=== PATIENT | female | born 1950 | race Caucasian/White ===

== ENCOUNTER → 2016-10-06 | Outpatient (CLI) | payer OTHER ==
--- NOTE | 2016-10-06 17:06 | KCIC ---
Bilateral digital screening mammograms with CAD: HISTORY Routine screening. COMPARISON Comparison is made to previous examinations dated 09/11/2015 and 09/06/2014. FINDINGS Breast density category A. The skin and nipples show no abnormalities. No abnormal lymph nodes are seen in the axilla. The breast parenchyma is predominately fatty. There are no dominant masses, suspicious calcifications or architectural distortions. Benign appearing calcifications are present. IMPRESSION No evidence of malignancy. Recommend routine annual mammographic screening. This study was interpreted with the benefit of Computerized Aided Detection (CAD). Mammography is not 100% sensitive in detecting breast cancer. Therefore, a self breast exam and a clinical breast exam are very important. A negative mammogram does not negate a clinically suspicious finding and should not result in a delay in biopsying a clinically suspicious abnormality. BI-RADS category 2. Benign. This patient's information has been entered into a reminder system for the patient to be notified with the results of this examination and a target date for her next mammograms. Electronically signed by: Pascale Quiros MD (Oct 06, 2016 17:05:07)
== END | disposition home or self-care (01) ==
LOC: KCIC MAMMO 14:52
PROVIDERS: ATTEND Family Medicine
DX: Z12.31 Encounter for screening mammogram for malignant neoplasm of breast (principal)
CPT/HCPCS: G0202; 77067

== ENCOUNTER → 2016-12-26 | Outpatient (CLI) | payer OTHER ==
--- NOTE | 2016-12-26 15:56 | KCIC ---
PROCEDURE MRI lumbar spine without contrast. HISTORY Low back pain. Bilateral radiculopathy. Symptoms are right greater than left and chronic. Symptoms have worsened in the last 5 years. TECHNIQUE Sagittal T1, sagittal T2, sagittal STIR, axial T1, and axial T2 sequences are provided. COMPARISON None. FINDINGS There is 4 millimeters of anterolisthesis at L3-L4. There is fatty replacement of the endplates at L4-L5 which appears degenerative. There is no marrow edema or worrisome marrow lesion. There is diffuse disc desiccation. There are probably vacuum discs from L2-L3 through L4-L5. There is narrowing of the interspace at L3-L4 and L4-L5. The conus medullaris is normal in signal intensity and in position. Subcutaneous edema is noted. The numbering system assumes 5 lumbar type vertebral bodies. Findings by individual level are as follows: T11-T12: Disc bulge and facet hypertrophy are noted, no canal or foraminal compromise is present. T12-L1: Disc osteophyte complex and minimal facet hypertrophy are noted. Midline AP diameter of the thecal sac is 13 millimeters, not significantly narrowed. There is minimal foraminal narrowing. L1-L2: Mild disc bulge and minimal facet hypertrophy are noted with minimal foraminal narrowing. Midline AP diameter of the thecal sac is 15 millimeters. L2-L3: Disc bulge and klst-co-abpulsbw facet hypertrophy are noted. There is minimal canal stenosis, midline AP diameter of the thecal sac narrowed to 10-11 millimeters. Foraminal narrowing is pulb-em-vdascqob. L3-L4: Disc osteophyte complex and moderate to severe facet and ligamentum flavum hypertrophy are noted. There is moderate to severe canal stenosis, midline AP diameter of the thecal sac 6 millimeters. There is lateral recess narrowing bilaterally. There is mild left and rbcc-tr-zkldyerc right foraminal narrowing. L4-L5: Disc osteophyte complex and facet hypertrophy are noted. Midline AP diameter of the thecal sac is 12 millimeters. There is mild to moderate bilateral foraminal narrowing. L5-S1: There is facet hypertrophy without canal or foraminal compromise. A few small perineural cysts are noted in the sacrum. IMPRESSION Degenerative disc disease and facet and ligamentum flavum hypertrophy are greatest at L3-L4 where there is canal stenosis and right greater than left foraminal narrowing. Electronically signed by: Luigi Bhatti MD (Dec 26, 2016 15:54:44)
== END | disposition home or self-care (01) ==
LOC: KCIC MRI 14:19
PROVIDERS: ATTEND Family Medicine
DX: M51.36 Other intervertebral disc degeneration, lumbar region (principal); M48.06 Spinal stenosis, lumbar region
CPT/HCPCS: 72148

== ENCOUNTER → 2017-01-15 | Outpatient (CLI) | payer OTHER ==
--- NOTE | 2017-01-15 12:45 | KCIC ---
AP a low lumbar spine with flexion and extension views Indication: Reason For Study Reason: LOWER BACK PAIN RADIATING DOWN INTO RIGHT HIP, WORSENING X 5 YEARS / Spl. Instructions: COMPARISION LUMBAR XRAYS SENT 06/09/16 / History: Findings: There is no compression fracture. Disc height loss is noted at all levels. There is anterolisthesis of L3 on L4 which is exacerbated during flexion and partially reduces during extension. Facet arthropathy is noted at L3-4. Impression: - Multilevel degenerative disc disease throughout the lumbar spine greatest at L3-L4. There is abnormal motion noted at this level. Facet arthropathy is also noted at this level. Electronically signed by: Jesse Breen (January 15, 2017 12:44:09)
== END | disposition home or self-care (01) ==
LOC: KCIC 10:56
PROVIDERS: ATTEND Neurological Surgery
DX: M51.36 Other intervertebral disc degeneration, lumbar region (principal); M12.88 Other specific arthropathies, not elsewhere classified, other specified site
CPT/HCPCS: 72100

== ENCOUNTER 2017-02-18 08:48 | Inpatient (IN) | payer OTHER ==
--- NOTE | 2017-02-13 10:01 | PREOP HP ---
DATE OF SERVICE: 02/18/2017 HISTORY OF PRESENT ILLNESS: The patient is a pleasant 56-year-old woman, who is having difficulty with low back pain along with pain, which radiates to her right hip. On occasion, the pain can radiate further into the right posterior thigh. The problem has been present for several years. She rates her pain as a 9/10. Walking and standing increases her pain. Sitting gives her some relief. She has had chiropractic treatment as well as physical therapy. She has had epidural steroid injections more than 5 years ago for a short period of relief. She is taking Advil to help with her pain. PAST MEDICAL HISTORY: Arthritis, headaches/migraines, hypertension, and tonsillitis. PAST SURGICAL HISTORY: Tonsillitis in 1954, broken arm 1981, hysterectomy in 1983, carpal tunnel in 1987, ulcer in 1996, and torn rotator cuff in 2013. FAMILY HISTORY: Diabetes, heart problem/disease, hypertension, and heart attack in an early age. SOCIAL HISTORY: Retired. . Denies substance abuse. Denies tobacco use. She drinks alcohol one to two times per month. ALLERGIES: No known drug allergies. CURRENT MEDICATIONS: Venlafaxine, atorvastatin, glipizide, losartan, potassium with hydrochlorothiazide, meloxicam, omeprazole, trazodone, gabapentin, bupropion, prednisone, ____, and Advil. REVIEW OF SYSTEMS: A 12-point review of systems was obtained and is noncontributory, except that mentioned above. PHYSICAL EXAMINATION: NEUROSURGERY EXAMINATION: GENERAL APPEARANCE: Alert, pleasant, in no acute distress. HEENT: Normocephalic, atraumatic. SKIN: Warm and dry. MUSCULOSKELETAL: Lumbar paraspinal muscle bulk is normal, restricted range of motion of lumbar spine, bvvh-bt-qpbefqxy tenderness of lower lumbar spine with palpation, and normal range of motion of the upper and lower extremities bilaterally. EXTREMITIES: No clubbing, cyanosis, or edema. NEUROLOGIC: Alert and oriented x 3, normal recent and remote memory, strength is 5/5 in bilateral lower extremities, sensory was intact to light touch in bilateral lower extremities, reflexes were present and symmetric in the lower extremities bilaterally, negative straight leg raising bilaterally, and normal gait. IMAGING: Reviewed. I reviewed a recent lumbar MRI scan. On that study, at L3-4, there was a small, grade 1 spondylolisthesis with severe lumbar spinal stenosis at that level. Flexion and extension x-rays were also reviewed. On these, I noted ____ at L3-4, which has changed from a small, grade 1 spondylolisthesis to a full, grade 1 spondylolisthesis. ASSESSMENT: 1. Spinal stenosis, lumbar region. 2. Spondylolisthesis, lumbar region. PLAN: I recommend a wide laminectomy at L3-4, and in addition to this, an instrumented interbody fusion. I did discuss all of this with her. The postoperative course was reviewed. She would like to proceed. We will make the arrangements. JOSÉ MIGUEL NANCE MD DR: VALDO/tammie JOB#: [id number] / [id number]
[~2017-02-18] VITALS: Ht 167.6 cm; Wt 108.9 kg
[~2017-02-18 08:48] MED LIST: ATOR40TA59 PO; BACITRACIN 50,000 UNIT in IV NORMAL SALINE 1000ML BAG 1,000 ML IRR ONE; BUPR300T4 PO; CETI10TA16 PO; GLIP5TAB10 PO; HYDROmorphone 2 MG/ML VIAL IV PRN; IBUP200T58 PO; IV RINGERS,LACTATED 1000ML 1,000 ML IV SCH; LIDOCAINE 1% 1 ML SYRINGE. ID PRN; LOSA1TAB17 PO; LOSA1TAB18 PO; MELO15TA23 PO; METF500T4 PO; MORPHINE SULFATE 2 MG/ML DISP.SYRIN. IV PRN; MULT-460 PO; OMEP40CA5 PO; ONDANSETRON PF 4 MG/2 ML VIAL. IV PRN; PROCHLORPERAZINE 10 MG/2 ML VIAL. IV PRN; VENL75TA PO; fentaNYL PF VIAL 100 MCG/2 ML VIAL IV PRN
[2017-02-18] MEDS ORDERED: THROMBIN TOPICAL 20,000 UNIT SPRAY.SYRN KIT TP ONE (09:08)
[2017-02-18] MEDS ORDERED: GELATIN SPONGE SIZE 100. ONE (09:08)
[2017-02-18] MEDS ORDERED: BUPIVAC MPF-EPI 0.5%-1:200000 30 ML VIAL. ONE (09:08)
[2017-02-18] MEDS ORDERED: KETOROLAC 60 MG/2 ML INJ FOR OR. ONE (09:08)
[2017-02-18] MEDS ORDERED: ceFAZolin 2GM PREMIX 2 GM/50 ML BAG IV ONE (10:00)
[2017-02-18] MEDS ORDERED: ROCURONIUM 50 MG/5 ML VIAL. ONE (10:01)
[2017-02-18] MEDS ORDERED: PROPOFOL 20 ML IV ONE (10:01)
[2017-02-18] MEDS ORDERED: fentaNYL PF VIAL 100 MCG/2 ML VIAL ONE (10:01)
[2017-02-18] MEDS ORDERED: PROPOFOL 50 ML IV ONE (10:01)
[2017-02-18] MEDS ORDERED: 0.9 % SODIUM CHLORIDE 50 ML VIAL. IJ ONE (10:01)
[2017-02-18] MEDS ORDERED: REMIFENTANIL 2 MG VIAL. IV ONE (10:01)
[2017-02-18] MEDS ORDERED: LIDOCAINE 2% PF Vial for OR 5 ML VIAL. ONE (10:01)
--- NOTE | 2017-02-18 11:15 | RAD ---
CT of the lumbar spine without contrast, 02/18/2017: History: Lumbar spinal stenosis, brain lab study Noncontrast scans were obtained with multiplanar reconstructions produced. The data was transferred to the operating room to aid in the patient's stereotactically guided surgery. The following findings are delineated: 1. For purposes of this report the lowest visible disc space will be considered to be L5-S1. There is partial sacralization of the transverse processes at L5. Utilizing this numbering system there is only a small rudimentary rib on the right at T12. 2. There is degenerative disc disease throughout the lumbar spine with multiple vacuum discs and marginal spurs. There are moderate degenerative changes involving scattered facet joints bilaterally. 3. The facet joint arthropathy is worst at the L3-4 level. There is a minimal associated spondylolisthesis. There is moderate broad-based posterior disc bulging. There is moderate posterior ligamentous thickening at this level. The combination of findings is causing moderate central spinal stenosis in a triangle configuration, as well as mild inferior foraminal narrowing on the right. 4. At T12-L1 there is moderate broad-based posterior disc bulging and spurring the thecal sac measures 11 mm in AP diameter. The neural foramina are well maintained. 5. At L1-2 there is mild to moderate disc bulging posterolaterally on both sides. The central spinal canal and neural foramina are well maintained. 6. At L2-3 there is mild broad-based posterior disc bulging. There is mild posterior ligamentous thickening. The thecal sac measures 9-10 mm in AP diameter at the midline. The neural foramina are well maintained. 7. At L4-5 there is moderate posterior marginal spurring. There is moderate spurring arising from both facet joints. There is borderline narrowing of the central spinal canal. There is moderately severe bilateral foraminal stenosis due to the spurring. 8. The central spinal canal and neural foramina are well maintained at L5-S1. PQRS Compliance Statement: One or more of the following individualized dose reduction techniques were utilized for this examination: 1. Automated exposure control 2. Adjustment of the mA and/or kV according to patient size 3. Use of iterative reconstruction technique
[2017-02-18] MEDS ORDERED: SUGAMMADEX SODIUM 200 MG/2 ML VIAL. IVP ONE (13:14)
[2017-02-18 13:51] VITALS: BP 158/108
--- NOTE | 2017-02-18 14:10 | DISCH ---
DISCHARGE INSTRUCTIONS Condition on Discharge Condition on Discharge: Stable Activity After Discharge Activity Instructions for Disc: Activity as tolerated, Avoid exertion Diet after Discharge Additional Diet Restrictions: resume home diet Contacting the after DC Call your doctor for: Concerns you may have Follow-Up Follow up with: Dr. Nance's nurse next week JOSÉ MIGUEL NANCE MD Feb 18, 2017 14:10
[2017-02-18] MEDS ORDERED: AMOX1TAB61 PO (14:13)
[2017-02-18] MEDS ORDERED: SEVOFLURANE 16 TO 30 MINUTES. IH ONE (14:18)
[2017-02-18] MEDS ORDERED: SEVOFLURANE 31 TO 60 MINUTES. IH ONE (14:18)
--- NOTE | 2017-02-19 09:11 | ACF ---
Admission Forms Criteria MUSCULOSKELETAL DISEASE GRG Clinical Indications for Admission to Inpatient Care (Place 'X' for any and all applicable criteria): Hospital admission is needed for appropriate care of the patient because of 1 or more of the following: [ ]I. Fracture, dislocation, or other musculoskeletal injury requiring inpatient care(medical) as indicated by 1 or more of the following(4)(5)(6)(7) [ ]a) Vertebral fracture requiring observation for instability or neurologic compromise (8) [ ]b) Compartment syndrome (proven or cannot be ruled out during observation level of care) (9) [ ]c) Limb-threatening injury [ ]d) Major injury requiring inpatient stabilization such as traction initiation or external fixation before internal fixation or closure of complex or open fracture [ ]e) Major injury requiring inpatient treatment after emergency or observation level care (as appropriate) [ ]f) Severe pain requiring acute inpatient management [ ]g) Injury with suspicion of abuse or neglect (eg., child, dependent elderly) [ ]II. Newly diagnosed or suspected bone, joint, or orthopedic device infection (e.g., osteomyelitis, septic arthritis) needing 1 or more of the following(1)(2)(3) [ ]a) IV antibiotics that cannot be initiated in other than inpatient setting (e.g., patient too unstable or home infusion not available) [ ]b) Device removal or replacement [ ]c) Bone or soft tissue debridement [ ]d) Joint drainage (drain placement or repetitive aspirations) [ ]III. Severe rheumatologic disease (e.g., systemic lupus erythematosus, rheumatoid arthritis) with complications or comorbidities (Also use Optimal Recovery Care Criteria or General Recovery Criteria as appropriate on the basis of predominant condition), including 1 or more of the following( 10)(11)(12)(13) [ ]a) Severe infection (e.g., PSYCH NURSE infection, sepsis) (14) [ ]b) Respiratory complications, including 1 or more of the following : [ ]i) Pleural effusion with respiratory compromise [ ]ii) Pulmonary hypertension with congestive failure [ ]iii) Respiratory failure [ ]iv) Pulmonary hemorrhage (15) [ ]c) Hematologic disease, including 1 or more of the following: [ ]i) Coagulopathy with bleeding [ ]ii) Thrombosis with hypercoagulable state [ ]iii) Thrombotic thrombocytopenic purpura [ ]d) Cerebritis with seizures, psychosis, or other severe abnormalities [ ]e) Vertebral destruction with monitoring needed for cervical myelopathy& possible respiratory compromise [ ]f) Exacerbation that requires inpatient treatment (e.g., intravenous immunosuppression) (16) [ ]g) Acute renal failure [ ]h) Cerebritis with seizures, psychosis, Altered mental status, or other neurologic abnormalities [ ]i) Pericardial effusion with tamponade [ ]j) Vertebral destruction, with monitoring needed for cervical myelopathy and possible respiratory compromise [ ]IV. Severe vasculitis with complications or comorbidities (Also use Optimal Recovery Care Criteria General Recovery Criteria as appropriate on the basis of predominant condition), including 1 or more of the following(11)(12)(17)(18)(19)(20) [ ]a) Exacerbation that requires inpatient treatment (e.g., intravenous immunosuppression) (19)(21) [ ]b) Pulmonary hemorrhage (15) [ ]c) PSYCH NURSE vasculitis with seizures, psychosis, Altered mental status that is severe or persistent, or other severe abnormalities (22) [ ]d) Cerebral infarction [ ]e) Gastrointestinal ischemia [ ]f) Gangrene or threatened amputation [ ]g) Renal failure (16) [ ]h) Other significant complications of vasculitis ( eg., tissue or organ ischemia, organ dysfunction ) [ ]V. Severe myopathy as indicated by 1 or more of the following (28)(29) [ ]a) New onset of airway compromise or inability to swallow [ ]b) Respiratory deterioration with observation needed for impending respiratory failure [ ]c) Exacerbation that requires inpatient treatment (e.g., intravenous immunosuppression) [ ]. Severe crystal gout (arthropathy) indicated by 1 or more of the following (23)(24) [ ]a) Severe pain requiring acute inpatient management [ ]b) Exacerbation that requires inpatient treatment (e.g., intravenous treatment) [ ]VII.Rhabdomyolysis and 1 or more of the following (25)(26)(27) [ ]a) Acute renal failure [ ]b) Need for intravenous hydration after emergency or observation level care (as appropriate) [ ]c) Inability to maintain oral hydration [ ]d) Change in mental status [ ]e) Electrolyte abnormality that remains after emergency or observation level care (as appropriate) [ ]VIII Post amputation complication, as indicated by ANY ONE of the following [ ]a) Infection [ ]b) Dehiscence [ ]c) Myodesis failure [X]IX. Severe pain requiring acute inpatient management due to musculoskeletal condition [ ]X. Musculoskeletal Disease and ALL of the following: [ ]a) Symptom or finding for which emergency and observation care have failed or are not considered appropriate (Use General Criteria: Observation Care as appropriate) [ ]b) Presence of ANY ONE of the following [ ]i) A General Admission Criteria [ ]ii) A Pediatric General Admission Criteria The original [facility] [employer] content created by [facility] [employer] has been revised. The portions of the content which have been revised are identified through the use of italic text or in bold, and [facility] has neither reviewed nor approved the modified material. All other unmodified content is copyright [facility]. Please see references footnoted in the original [facility] edition 2016 Admission Criteria Met?: Yes TOMI PIERRE Feb 19, 2017 09:11
== END 2017-02-18 14:57 | disposition home or self-care (01) | DRG 552 ==
LOC: OPSVCIP 08:48
PROVIDERS: ADMIT Neurological Surgery; ATTEND Neurological Surgery
DX: M43.16 Spondylolisthesis, lumbar region (principal); M48.06 Spinal stenosis, lumbar region; G43.909 Migraine, unspecified, not intractable, without status migrainosus; M19.90 Unspecified osteoarthritis, unspecified site; I10 Essential (primary) hypertension; Z79.899 Other long term (current) drug therapy; Z83.3 Family history of diabetes mellitus; Z82.49 Family history of ischemic heart disease and other diseases of the circulatory system; Z90.710 Acquired absence of both cervix and uterus; Z79.1 Long term (current) use of non-steroidal anti-inflammatories (NSAID)
CPT/HCPCS: 36415; 72131; 82962; 86850; 86900; 86901; 87641; 93005; J0690; J1885; J2704; J3010; J3490; J7030; J7120

== ENCOUNTER 2017-03-05 07:03 | Inpatient (IN) | payer OTHER ==
[~2017-03-05] VITALS: Ht 167.6 cm; Wt 108.9 kg
[2017-03-05] VITALS (9 sets, daily range): BP systolic 141–182; BP diastolic 56–139
[~2017-03-05 07:03] MED LIST changes: +AMOX1TAB61 PO
[2017-03-05] MEDS ORDERED: GELATIN SPONGE SIZE 100. ONE (07:25)
[2017-03-05] MEDS ORDERED: THROMBIN TOPICAL 20,000 UNIT SPRAY.SYRN KIT TP ONE (07:25)
[2017-03-05] MEDS ORDERED: BUPIVACAINE-EPI 0.25%-1:200000 MPF 30 ML VIAL. ONE (07:25)
[2017-03-05] MEDS ORDERED: KETOROLAC 60 MG/2 ML INJ FOR OR. ONE (07:25)
[2017-03-05] MEDS ORDERED: ROCURONIUM 50 MG/5 ML VIAL. ONE (07:57)
[2017-03-05] MEDS ORDERED: 0.9 % SODIUM CHLORIDE 50 ML VIAL. IJ ONE ×3 (07:57→14:40)
[2017-03-05] MEDS ORDERED: PROPOFOL 50 ML IV ONE ×4 (07:57→14:01)
[2017-03-05] MEDS ORDERED: REMIFENTANIL 2 MG VIAL. IV ONE ×3 (07:57→12:53)
[2017-03-05] MEDS ORDERED: DESFLURANE > 120 MINUTES IH ONE (07:57)
[2017-03-05] MEDS ORDERED: PROPOFOL 20 ML IV ONE (07:57)
[2017-03-05] MEDS ORDERED: DEXAMETHASONE SOD PHOS 20 MG/5 ML VIAL. ONE (07:57)
[2017-03-05] MEDS ORDERED: MINERAL OIL/PETROLATUM,WHITE OPHTH OINT 3.5GM TUBE. ONE (07:57)
[2017-03-05] MEDS ORDERED: LIDOCAINE 2% PF Vial for OR 5 ML VIAL. ONE (07:57)
[2017-03-05] MEDS ORDERED: ONDANSETRON PF 4 MG/2 ML VIAL. ONE (07:57)
[2017-03-05] MEDS ORDERED: fentaNYL PF VIAL 100 MCG/2 ML VIAL ONE (07:57)
--- NOTE | 2017-03-05 09:12 | ACF ---
Admission Forms Criteria MUSCULOSKELETAL DISEASE GRG Clinical Indications for Admission to Inpatient Care (Place 'X' for any and all applicable criteria): Hospital admission is needed for appropriate care of the patient because of 1 or more of the following: [ ]I. Fracture, dislocation, or other musculoskeletal injury requiring inpatient care(medical) as indicated by 1 or more of the following(4)(5)(6)(7) [ ]a) Vertebral fracture requiring observation for instability or neurologic compromise (8) [ ]b) Compartment syndrome (proven or cannot be ruled out during observation level of care) (9) [ ]c) Limb-threatening injury [ ]d) Major injury requiring inpatient stabilization such as traction initiation or external fixation before internal fixation or closure of complex or open fracture [ ]e) Major injury requiring inpatient treatment after emergency or observation level care (as appropriate) [ ]f) Severe pain requiring acute inpatient management [ ]g) Injury with suspicion of abuse or neglect (eg., child, dependent elderly) [ ]II. Newly diagnosed or suspected bone, joint, or orthopedic device infection (e.g., osteomyelitis, septic arthritis) needing 1 or more of the following(1)(2)(3) [ ]a) IV antibiotics that cannot be initiated in other than inpatient setting (e.g., patient too unstable or home infusion not available) [ ]b) Device removal or replacement [ ]c) Bone or soft tissue debridement [ ]d) Joint drainage (drain placement or repetitive aspirations) [ ]III. Severe rheumatologic disease (e.g., systemic lupus erythematosus, rheumatoid arthritis) with complications or comorbidities (Also use Optimal Recovery Care Criteria or General Recovery Criteria as appropriate on the basis of predominant condition), including 1 or more of the following( 10)(11)(12)(13) [ ]a) Severe infection (e.g., MEDICAL SURGICAL TECH infection, sepsis) (14) [ ]b) Respiratory complications, including 1 or more of the following : [ ]i) Pleural effusion with respiratory compromise [ ]ii) Pulmonary hypertension with congestive failure [ ]iii) Respiratory failure [ ]iv) Pulmonary hemorrhage (15) [ ]c) Hematologic disease, including 1 or more of the following: [ ]i) Coagulopathy with bleeding [ ]ii) Thrombosis with hypercoagulable state [ ]iii) Thrombotic thrombocytopenic purpura [ ]d) Cerebritis with seizures, psychosis, or other severe abnormalities [ ]e) Vertebral destruction with monitoring needed for cervical myelopathy& possible respiratory compromise [ ]f) Exacerbation that requires inpatient treatment (e.g., intravenous immunosuppression) (16) [ ]g) Acute renal failure [ ]h) Cerebritis with seizures, psychosis, Altered mental status, or other neurologic abnormalities [ ]i) Pericardial effusion with tamponade [ ]j) Vertebral destruction, with monitoring needed for cervical myelopathy and possible respiratory compromise [ ]IV. Severe vasculitis with complications or comorbidities (Also use Optimal Recovery Care Criteria General Recovery Criteria as appropriate on the basis of predominant condition), including 1 or more of the following(11)(12)(17)(18)(19)(20) [ ]a) Exacerbation that requires inpatient treatment (e.g., intravenous immunosuppression) (19)(21) [ ]b) Pulmonary hemorrhage (15) [ ]c) MEDICAL SURGICAL TECH vasculitis with seizures, psychosis, Altered mental status that is severe or persistent, or other severe abnormalities (22) [ ]d) Cerebral infarction [ ]e) Gastrointestinal ischemia [ ]f) Gangrene or threatened amputation [ ]g) Renal failure (16) [ ]h) Other significant complications of vasculitis ( eg., tissue or organ ischemia, organ dysfunction ) [ ]V. Severe myopathy as indicated by 1 or more of the following (28)(29) [ ]a) New onset of airway compromise or inability to swallow [ ]b) Respiratory deterioration with observation needed for impending respiratory failure [ ]c) Exacerbation that requires inpatient treatment (e.g., intravenous immunosuppression) [ ]. Severe crystal gout (arthropathy) indicated by 1 or more of the following (23)(24) [ ]a) Severe pain requiring acute inpatient management [ ]b) Exacerbation that requires inpatient treatment (e.g., intravenous treatment) [ ]VII.Rhabdomyolysis and 1 or more of the following (25)(26)(27) [ ]a) Acute renal failure [ ]b) Need for intravenous hydration after emergency or observation level care (as appropriate) [ ]c) Inability to maintain oral hydration [ ]d) Change in mental status [ ]e) Electrolyte abnormality that remains after emergency or observation level care (as appropriate) [ ]VIII Post amputation complication, as indicated by ANY ONE of the following [ ]a) Infection [ ]b) Dehiscence [ ]c) Myodesis failure [X]IX. Severe pain requiring acute inpatient management due to musculoskeletal condition [ ]X. Musculoskeletal Disease and ALL of the following: [ ]a) Symptom or finding for which emergency and observation care have failed or are not considered appropriate (Use General Criteria: Observation Care as appropriate) [ ]b) Presence of ANY ONE of the following [ ]i) A General Admission Criteria [ ]ii) A Pediatric General Admission Criteria The original [facility] [employer] content created by [facility] [employer] has been revised. The portions of the content which have been revised are identified through the use of italic text or in bold, and [facility] has neither reviewed nor approved the modified material. All other unmodified content is copyright [facility]. Please see references footnoted in the original [facility] edition 2016 Admission Criteria Met?: Yes TOMI PIERRE Mar 05, 2017 09:12
[2017-03-05] MEDS ORDERED: ePHEDrine PF IN SALINE 50 MG/5 ML DISP.SYRIN IV ONE (09:17)
[2017-03-05] MEDS ORDERED: GLYCOPYRROLATE 1 MG/5 ML VIAL. ONE (09:51)
[2017-03-05] MEDS ORDERED: PHENYLEPHRINE in 0.9% NACL PF 1 MG/10 ML DISP.SYRIN. IV ONE ×2 (09:55→11:06)
[2017-03-05] MEDS ORDERED: EPINEPHrine SYRINGE 1 MG/10 ML SYRINGE ONE (10:44)
[2017-03-05] MEDS ORDERED: PHENYLEPHRINE 10 MG/ML VIAL. ONE (11:17)
[2017-03-05] MEDS ORDERED: ceFAZolin 2GM PREMIX 2 GM/50 ML BAG IV ONE (13:00)
[2017-03-05] MEDS ORDERED: REMIFENTANIL 1 MG VIAL. IV ONE ×2 (14:40)
[2017-03-05] MEDS ORDERED: DEXTROSE 50% 25 GM / 50ML DISP.SYRIN. IV PRN (14:45)
[2017-03-05] MEDS ORDERED: 0.9 % SODIUM CHLORIDE 10 ML DISP.SYRIN. IV PRN (14:45)
[2017-03-05] MEDS ORDERED: MAG HYDROX/ALUMINUM HYD/SIMETH 30 ML ORAL.SUSP PO PRN (14:45)
[2017-03-05] MEDS ORDERED: diphenhydrAMINE 50 MG/ML VIAL IV PRN (14:45)
[2017-03-05] MEDS ORDERED: MAGNESIUM HYDROXIDE 2,400 MG/30 ML ORAL.SUSP. PO PRN (14:45)
[2017-03-05] MEDS ORDERED: CALCIUM CARBONATE 500 MG TAB.CHEW PO PRN (14:45)
[2017-03-05] MEDS ORDERED: fentaNYL PF VIAL 100 MCG/2 ML VIAL IV PRN (14:45)
[2017-03-05] MEDS ORDERED: oxyCODONE/APAP 5/325 1 TAB TABLET PO PRN (14:45)
[2017-03-05] MEDS ORDERED: diphenhydrAMINE HCL 25 MG CAPSULE PO PRN (14:45)
[2017-03-05] MEDS ORDERED: ACETAMINOPHEN 325 MG TABLET. PO PRN (14:45)
[2017-03-05] MEDS ORDERED: ONDANSETRON PF 4 MG/2 ML VIAL. IV PRN (14:45)
[2017-03-05] MEDS ORDERED: INSULIN ASPART 100 UNIT/ML 10ML VIAL. SQ PRN (16:15)
[2017-03-05] MEDS: fentaNYL PF VIAL 100 MCG/2 ML VIAL IV PRN ×2 (16:19→16:27)
[2017-03-05] MEDS ORDERED: POTASSIUM CL 20MEQ-0.45% NACL 1,000 ML IV SCH (18:00)
[2017-03-05] MEDS: metFORMIN 500 MG TABLET PO SCH (18:18)
[2017-03-05] MEDS ORDERED: ATORVASTATIN CALCIUM 40 MG TABLET. PO SCH (21:00)
[2017-03-05] MEDS: DOCUSATE SODIUM 100 MG CAPSULE. PO SCH (21:10)
[2017-03-05] MEDS: METHOCARBAMOL 750 MG TABLET PO SCH (21:10)
[2017-03-05] MEDS: oxyCODONE/APAP 5/325 1 TAB TABLET PO PRN (23:44)
[2017-03-06 03:00] VITALS: BP 116/60
[2017-03-06 06:24] VITALS: BP 151/75
[2017-03-06] MEDS ORDERED: PANTOPRAZOLE 40 MG TABLET.DR. PO SCH (07:30)
[2017-03-06] MEDS: metFORMIN 500 MG TABLET PO SCH (07:53)
[2017-03-06] MEDS: DOCUSATE SODIUM 100 MG CAPSULE. PO SCH (08:32)
[2017-03-06] MEDS: METHOCARBAMOL 750 MG TABLET PO SCH ×2 (08:33→14:02)
[2017-03-06] MEDS ORDERED: LOSARTAN POTASSIUM 50 MG TABLET. PO SCH (09:00)
[2017-03-06] MEDS ORDERED: buPROPion XL 150 MG TAB.ER.24H. PO SCH (09:00)
[2017-03-06] MEDS ORDERED: CETIRIZINE HCL 10 MG TABLET. PO SCH (09:00)
[2017-03-06] MEDS ORDERED: MULTIVITAMIN with MINERAL TABLET. PO SCH (09:00)
[2017-03-06] MEDS ORDERED: glipiZIDE 5 MG TABLET PO SCH (09:00)
[2017-03-06] MEDS ORDERED: VENLAFAXINE 75 MG TABLET. PO SCH (09:00)
[2017-03-06] MEDS ORDERED: hydroCHLOROthiazide 12.5 MG CAPSULE PO SCH (09:00)
[2017-03-06] MEDS: oxyCODONE/APAP 5/325 1 TAB TABLET PO PRN (10:57)
[2017-03-06 11:38] VITALS: BP 130/63
--- NOTE | 2017-03-06 14:12 | DISCH ---
DISCHARGE INSTRUCTIONS Condition on Discharge Condition on Discharge: Stable Activity After Discharge Activity Instructions for Disc: No restrictions Other activity instructions: No bending, pulling, pushing, lifting >10 lbs Bathing Instructions: Shower-keep dressing dry Lifting Instructions after Dis: No heavy lifting, No pulling or pushing Driving Instructions after Dis: Do not drive, No driving for 2 weeks Diet after Discharge Additional Diet Restrictions: resume previous diet Wound Incision Care Wound/Incision Care: Ice to area for comfort Other wound/incision instructi: may shower in 48 hours. no direct water pressure. no soaking. Wound Care Equipment: Dressings (change if saturated) Follow-Up Follow up with: 's nurse in 2 weeks. [phone]. call for appointment Follow Up With: ANDREW WOO RN Mar 06, 2017 14:12
--- NOTE | 2017-03-09 14:24 | PATHOLOGY ---
PATHOLOGY REPORT * * * * * * * * FINAL DIAGNOSIS: Segments of fibrocartilaginous, fibroadipose, and skeletal muscle tissue and bone, lumbar decompression: - Degenerative changes of fibrocartilaginous tissue. (JPM:chay; 03/09/2017) COMMENT: There is no evidence of an acute inflammatory process or malignancy. REPORT ELECTRONICALLY SIGNED BY: Clay Leach M.D. DATE/TIME: 03/09/2017 14:23 * * * * * * * * GROSS PATHOLOGY: Received in formalin labeled "Larisa Hickey, lumbar decompression" are multiple segments of rodriguez, rubbery, and gritty tissue admixed with bone. The specimen measures 3.8 x 3.5 x 2.0 cm in aggregate dimensions. The tissue is submitted representatively in cassette A1, following decalcification. (JPM; 03/06/17) INITIAL CPT CODE(S): A; 72245, 27835 Professional services performed [place] [facility] [address] Technical services performed by [facility] at [address] [place] [address], [facility] [address] [address]. SPECIMEN(S) RECEIVED: A.Lumbar decompression CLINICAL HISTORY: Lumbar stenosis, spondylolisthesis PATIENT: LARISA HICKEY /AGE: 1006/12/1950 (Age: 66) PATIENT #: [id number] ALT CASE #: SPECIMEN COLLECTION DATE: 03/05/2017 SPECIMEN RECEIVED DATE: 03/06/2017 [facility] - [address] [place] [address] - PHONE: [phone] * * * END OF REPORT * * *
--- NOTE | 2017-04-01 23:49 | OP ---
DATE OF SURGERY: 03/05/2017 PREOPERATIVE DIAGNOSES: 1. Grade 1 spondylolisthesis with motion on flexion and extension views. 2. Severe lumbar spinal stenosis, L3-L4. POSTOPERATIVE DIAGNOSES: 1. Grade 1 spondylolisthesis with motion on flexion and extension views. 2. Severe lumbar spinal stenosis, L3-L4. OPERATION PERFORMED: Lumbar laminectomy, L3-L4; posterior instrumentation, L3-L4; posterolateral fusion, L3-L4 with allograft and autograft bone. The operation was done with EMG monitoring, motor evoked potentials, fluoroscopy, microscopic dissection, BrainLAB guidance. MARKETING SPECIALIST: Betsy Cano, assisted with the exposure, the laminectomy, the instrumentation and posterolateral fusion closure. OPERATIVE INDICATIONS: The patient is a very pleasant 66-year-old woman who developed intractable back and right greater than left leg pain. She failed conservative measures. On imaging studies, she was found to have severe lumbar spinal stenosis at L3-L4 along with a grade 1 spondylolisthesis with motion on flexion and extension x-rays. I recommended a wide laminectomy combined with an instrumented lumbar fusion. She understood the rationale for surgery, the fusion, the technique and the expected postoperative course and wished to go ahead. DESCRIPTION OF PROCEDURE: Following general endotracheal anesthesia, the patient was positioned prone on the Juan table. Her lumbar region was prepped and draped in a standard fashion. JOANNE hose and AV impulse boots were applied for DVT prophylaxis. A microscope was draped. Fluoroscopy was draped and brought into field. Monitoring was established. Ancef 2 gram was given less than 1 hour prior to initiation of the surgery. Iliac posts were placed into the left iliac crest and the BrainLAB system was initialized. I then made a midline posterior incision extending from the superior portion of L3 to inferior portion of L4. I dissected down through the skin and subcutaneous tissue and reflected the paraspinal muscles laterally and placed a Monetta micro disk retractor. I brought in the microscope during this time. The remainder of the surgery was done with a microscope using microscopic technique. I exposed the lamina and carried my dissection laterally and exposed the transverse processes of L3 and L4 bilaterally. I, using the Convo system, identified the pedicles of L3 and L4 and I drilled into the posterior aspect of the pedicle followed by the black ball followed by the ball tip probe, followed by tap, followed by screw placement. Using NuVasive system of instrumentation, I did place reduction screws in L3. I brought in the high speed air drill. I trimmed away the spinous processes of L3 and L4 with Leksell rongeurs and then using the high-speed air drill, I drilled the lamina and thinned this then used Kerrison rongeurs to complete my work and performed a very generous laminectomy at L3-L4 and carried this is far laterally. I also performed partial foraminotomy. I was able to well decompress the dura and remove the very thickened hypertrophic ligamentum flavum and irrigated copiously. I did use small amounts of bone wax for any bone bleeding in the bipolar cautery where necessary. I excoriated the transverse processes and the lateral facets and packed allograft to mix with autograft bone. I also aspirated 20 mL of bone marrow at this time mixed this with the allograft and autograft bone and packed this into the lateral gutters bilaterally. The rods were placed and I then worked to help reduce the spondylolisthesis. The construct was torqued in a sequential fashion. I irrigated copiously, removed the retractors, obtained excellent hemostasis in the muscle and then the fluoroscopic images looked quite good. I closed the wound with absorbable sutures. Skin was closed with a 4-0 subcuticular stitch. Operation went very well and the patient was taken to recovery room in excellent condition. There was significant improvement in her spondylolisthesis and I feel I had an excellent nerve root decompression. I was quite pleased with the surgery. JOSÉ MIGUEL NANCE MD DR: VALDO/tammie JOB#: [id number] / [id number]
--- NOTE | 2017-04-02 10:18 | PREOP HP ---
DATE OF SERVICE: 02/18/2017 HISTORY OF PRESENT ILLNESS: The patient is a pleasant 56-year-old woman, who is having difficulty with low back pain along with pain, which radiates to her right hip. On occasion, the pain can radiate further into the right posterior thigh. The problem has been present for several years. She rates her pain as a 9/10. Walking and standing increases her pain. Sitting gives her some relief. She has had chiropractic treatment as well as physical therapy. She has had epidural steroid injections more than 5 years ago for a short period of relief. She is taking Advil to help with her pain. PAST MEDICAL HISTORY: Arthritis, headaches/migraines, hypertension, and tonsillitis. PAST SURGICAL HISTORY: Tonsillitis in 1954, broken arm 1981, hysterectomy in 1983, carpal tunnel in 1987, ulcer in 1996, and torn rotator cuff in 2013. FAMILY HISTORY: Diabetes, heart problem/disease, hypertension, and heart attack in an early age. SOCIAL HISTORY: Retired. . Denies substance abuse. Denies tobacco use. She drinks alcohol one to two times per month. ALLERGIES: No known drug allergies. CURRENT MEDICATIONS: Venlafaxine, atorvastatin, glipizide, losartan, potassium with hydrochlorothiazide, meloxicam, omeprazole, trazodone, gabapentin, bupropion, prednisone, ____, and Advil. REVIEW OF SYSTEMS: A 12-point review of systems was obtained and is noncontributory, except that mentioned above. PHYSICAL EXAMINATION: NEUROSURGERY EXAMINATION: GENERAL APPEARANCE: Alert, pleasant, in no acute distress. HEENT: Normocephalic, atraumatic. SKIN: Warm and dry. MUSCULOSKELETAL: Lumbar paraspinal muscle bulk is normal, restricted range of motion of lumbar spine, [id number] tenderness of lower lumbar spine with palpation, and normal range of motion of the upper and lower extremities bilaterally. EXTREMITIES: No clubbing, cyanosis, or edema. NEUROLOGIC: Alert and oriented x 3, normal recent and remote memory, strength is 5/5 in bilateral lower extremities, sensory was intact to light touch in bilateral lower extremities, reflexes were present and symmetric in the lower extremities bilaterally, negative straight leg raising bilaterally, and normal gait. IMAGING: Reviewed. I reviewed a recent lumbar MRI scan. On that study, at L3-4, there was a small, grade 1 spondylolisthesis with severe lumbar spinal stenosis at that level. Flexion and extension x-rays were also reviewed. On these, I noted ____ at L3-4, which has changed from a small, grade 1 spondylolisthesis to a full, grade 1 spondylolisthesis. ASSESSMENT: 1. Spinal stenosis, lumbar region. 2. Spondylolisthesis, lumbar region. PLAN: I recommend a wide laminectomy at L3-4, and in addition to this, an instrumented interbody fusion. I did discuss all of this with her. The postoperative course was reviewed. She would like to proceed. We will make the arrangements. JOSÉ MIGUEL NANCE MD DR: VALDO/tammie JOB#: [id number] / [id number]
== END 2017-03-06 15:09 | disposition home or self-care (01) | DRG 460 ==
LOC: OPSVCIP 07:03 → 4 SOUTHEST 17:39
PROVIDERS: ADMIT Neurological Surgery; ATTEND Neurological Surgery
PROC: 0SB20ZZ Excision of Lumbar Vertebral Disc, Open Approach (ICD-10-PCS; 2017-03-05)
PROC: 0SG00Z1 (ICD-10-PCS; principal; 2017-03-05 08:30)
DX: M48.06 Spinal stenosis, lumbar region (principal); M43.16 Spondylolisthesis, lumbar region; Z88.5 Allergy status to narcotic agent; Z79.899 Other long term (current) drug therapy
CPT/HCPCS: 36415; 76000; 82962; 86850; 86900; 86901; 88304; 88311; C1713; J0171; J0690; J1100; J1815; J1885; J2001; J2270; J2370; J2405; J2704; J3010; J3490; J7030; J7120

== ENCOUNTER → 2017-06-01 | Outpatient (CLI) | payer OTHER ==
[~2017-06-01] MED LIST changes: -BACITRACIN 50,000 UNIT in IV NORMAL SALINE 1000ML BAG 1,000 ML IRR ONE; -HYDROmorphone 2 MG/ML VIAL IV PRN; -IV RINGERS,LACTATED 1000ML 1,000 ML IV SCH; -LIDOCAINE 1% 1 ML SYRINGE. ID PRN; -MORPHINE SULFATE 2 MG/ML DISP.SYRIN. IV PRN; -ONDANSETRON PF 4 MG/2 ML VIAL. IV PRN; -PROCHLORPERAZINE 10 MG/2 ML VIAL. IV PRN; -fentaNYL PF VIAL 100 MCG/2 ML VIAL IV PRN
--- NOTE | 2017-06-01 16:39 | KCIC ---
LUMBAR SPINE 2-3V Clinical Indication: Postop lumbar fusion. Comparison: Lumbar spine series June 09, 2016. Findings: There is motion artifact degrading image quality on the AP image. Since the prior study there has been posterior fusion with bilateral pedicle screws of L3-L4. There is minimal grade 1 anterolisthesis of L3 on L4. Anterolisthesis is improved from prior study. There is disc space narrowing and degenerative endplate sclerosis and spurring in the lumbar spine most advanced at L4/L5. Vacuum disc phenomenon L4/L5 and L3/L4. No compression fracture is seen. Gastric lap band is noted, position appears appropriate. IMPRESSION: Posterior fusion of L3-L4. There is grade 1 anterolisthesis of L3 on L4, improved from prior study. Electronically signed by: Reese Casanova MD (06/01/2017 4:36 PM) [id number]
== END | disposition home or self-care (01) ==
LOC: KCIC 15:28
PROVIDERS: ATTEND Neurological Surgery
DX: Z01.818 Encounter for other preprocedural examination (principal)
CPT/HCPCS: 72100

== ENCOUNTER → 2017-08-13 | Outpatient (CLI) | payer OTHER ==
[~2017-08-13] MED LIST changes: -LOSA1TAB17 PO; -LOSA1TAB18 PO; +LOSA1TAB22 PO; +LOSA1TAB25 PO
== END | disposition home or self-care (01) ==
LOC: PMGWOUND 11:50
PROVIDERS: ATTEND Emergency Medicine Undersea and Hyperbaric Medicine
DX: I87.311 Chronic venous hypertension (idiopathic) with ulcer of right lower extremity (principal); E11.622 Type 2 diabetes mellitus with other skin ulcer; L97.211 Non-pressure chronic ulcer of right calf limited to breakdown of skin; F32.9 Major depressive disorder, single episode, unspecified; E78.00 Pure hypercholesterolemia, unspecified; M16.11 Unilateral primary osteoarthritis, right hip; Z90.710 Acquired absence of both cervix and uterus
CPT/HCPCS: 97597

== ENCOUNTER → 2017-08-20 | Outpatient (CLI) | payer OTHER | END | disposition home or self-care (01) | LOC: PMGWOUND 11:00 | PROVIDERS: ATTEND Emergency Medicine Undersea and Hyperbaric Medicine | DX: I87.311 Chronic venous hypertension (idiopathic) with ulcer of right lower extremity (principal); E11.622 Type 2 diabetes mellitus with other skin ulcer; L97.211 Non-pressure chronic ulcer of right calf limited to breakdown of skin; E78.00 Pure hypercholesterolemia, unspecified; I10 Essential (primary) hypertension; G47.33 Obstructive sleep apnea (adult) (pediatric); F32.9 Major depressive disorder, single episode, unspecified; M16.11 Unilateral primary osteoarthritis, right hip; Z90.710 Acquired absence of both cervix and uterus | CPT/HCPCS: 29581; 97597 ==

== ENCOUNTER → 2017-08-24 | Outpatient (CLI) | payer OTHER | END | disposition home or self-care (01) | LOC: PMGWOUND 09:08 | PROVIDERS: ATTEND Emergency Medicine Undersea and Hyperbaric Medicine | DX: I87.311 Chronic venous hypertension (idiopathic) with ulcer of right lower extremity (principal); E11.622 Type 2 diabetes mellitus with other skin ulcer; L97.211 Non-pressure chronic ulcer of right calf limited to breakdown of skin; F32.9 Major depressive disorder, single episode, unspecified; E78.00 Pure hypercholesterolemia, unspecified; G47.33 Obstructive sleep apnea (adult) (pediatric); M16.11 Unilateral primary osteoarthritis, right hip; Z90.710 Acquired absence of both cervix and uterus | CPT/HCPCS: 29581 ==

== ENCOUNTER → 2017-08-28 | Outpatient (CLI) | payer OTHER | END | disposition home or self-care (01) | LOC: PMGWOUND 11:07 | PROVIDERS: ATTEND Preventive Medicine Undersea and Hyperbaric Medicine | DX: I87.311 Chronic venous hypertension (idiopathic) with ulcer of right lower extremity (principal); E11.622 Type 2 diabetes mellitus with other skin ulcer; L97.211 Non-pressure chronic ulcer of right calf limited to breakdown of skin; F32.9 Major depressive disorder, single episode, unspecified; E78.00 Pure hypercholesterolemia, unspecified; G47.33 Obstructive sleep apnea (adult) (pediatric); M16.11 Unilateral primary osteoarthritis, right hip; Z90.710 Acquired absence of both cervix and uterus | CPT/HCPCS: 29581; 97597 ==

== ENCOUNTER → 2017-09-03 | Outpatient (CLI) | payer OTHER | END | disposition home or self-care (01) | LOC: PMGWOUND 11:21 | DX: I87.311 Chronic venous hypertension (idiopathic) with ulcer of right lower extremity (principal); E11.622 Type 2 diabetes mellitus with other skin ulcer; L97.211 Non-pressure chronic ulcer of right calf limited to breakdown of skin; F32.9 Major depressive disorder, single episode, unspecified; E78.00 Pure hypercholesterolemia, unspecified; G47.33 Obstructive sleep apnea (adult) (pediatric); M16.11 Unilateral primary osteoarthritis, right hip; Z90.710 Acquired absence of both cervix and uterus | CPT/HCPCS: 99213 ==

== ENCOUNTER → 2017-09-04 | Outpatient (CLI) | payer OTHER | END | disposition home or self-care (01) | LOC: KCIC DEXA 12:30 | DX: Z13.820 Encounter for screening for osteoporosis (principal); Z78.0 Asymptomatic menopausal state | CPT/HCPCS: 77080 ==

== ENCOUNTER → 2017-09-15 | Outpatient (CLI) | payer OTHER | END | disposition home or self-care (01) | LOC: KCIC US 10:09 | DX: K74.60 Unspecified cirrhosis of liver (principal) | CPT/HCPCS: 76700 ==

== ENCOUNTER → 2017-10-08 | Day surgery (SDC) | payer OTHER ==
[~2017-10-08] MED LIST changes: -AMOX1TAB61 PO; -ATOR40TA59 PO; -BUPR300T4 PO; -CETI10TA16 PO; -GLIP5TAB10 PO; -IBUP200T58 PO; +LIDOCAINE 1% PF 2 ML VIAL. ID; +LIDOCAINE 2% 100 MG/5 ML SYRINGE.; -LOSA1TAB22 PO; -LOSA1TAB25 PO; -MELO15TA23 PO; -METF500T4 PO; +MIDAZOLAM HCL/PF 2 MG/2 ML VIAL. IV; -MULT-460 PO; -OMEP40CA5 PO; +PROPOFOL 20 ML IV; -VENL75TA PO; +fentaNYL PF VIAL 100 MCG/2 ML VIAL IV
[2017-10-08] MEDS: IV RINGERS,LACTATED 1000ML 1,000 ML IV ×2 (09:52)
[2017-10-08 10:01] LABS: POC GLUCOSE 141 mg/dL (70-99)
== END | disposition home or self-care (01) ==
LOC: ENDOS 09:29
DX: K21.0 Gastro-esophageal reflux disease with esophagitis (principal); E78.00 Pure hypercholesterolemia, unspecified; I10 Essential (primary) hypertension; F32.9 Major depressive disorder, single episode, unspecified; E11.9 Type 2 diabetes mellitus without complications; Z90.710 Acquired absence of both cervix and uterus; Z79.899 Other long term (current) drug therapy; Z98.890 Other specified postprocedural states; Z98.51 Tubal ligation status; Z87.39 Personal history of other diseases of the musculoskeletal system and connective tissue
CPT/HCPCS: 43239; 82962; 88305; 88342; J2704

== ENCOUNTER → 2017-11-11 | Outpatient (CLI) | payer OTHER | END | disposition home or self-care (01) | LOC: KCIC MAMMO 14:03 | DX: Z12.31 Encounter for screening mammogram for malignant neoplasm of breast (principal) | CPT/HCPCS: 77063; 77067 ==

== ENCOUNTER → 2018-12-16 | Day surgery (SDC) | payer OTHER ==
[~2018-12-16] MED LIST changes: +AMOX1TAB61 PO; +ATOR40TA59 PO; +BUPR300T4 PO; +CETI10TA16 PO; +GLIP5TAB10 PO; +IBUP200T58 PO; +IV RINGERS,LACTATED 1000ML 1,000 ML IV SCH; -LIDOCAINE 1% PF 2 ML VIAL. ID; -LIDOCAINE 2% 100 MG/5 ML SYRINGE.; +LIDOCAINE 2% PF 5 ML VIAL. ONE; +LISI-334 PO; +LOSA1TAB22 PO; +LOSA1TAB25 PO; +MELO15TA23 PO; +METF500T16 PO; -MIDAZOLAM HCL/PF 2 MG/2 ML VIAL. IV; +MULT-460 PO; +OMEP40CA5 PO; -PROPOFOL 20 ML IV; +PROPOFOL 40 ML IV ONE; +TRAZ-118 PO; +VENL75TA PO; +ZOLP10TA4 PO; -fentaNYL PF VIAL 100 MCG/2 ML VIAL IV
[2018-12-16 10:43] VITALS: BP 132/81
--- NOTE | 2018-12-17 16:07 | PATHOLOGY ---
[facility] Accession Number: [id number] . 01 Material submitted: . PART A: small bowel - SMALL BOWEL BIOPSY PART B: stomach - GASTRIC ANTRUM BIOPSY PART C: esophagus - DISTAL ESOPHAGUS BIOPSY. Modifiers: distal PART D: colon - SIGMOID POLYP. Modifiers: sigmoid PART E: rectum - RECTAL POLYP . 01 Clinical history: . Browning's . 02 Diagnosis: A. Small biopsy: - No significant pathologic abnormalities. . B. Gastric biopsy, antrum: - Chronic gastritis, mild. . C. Esophageal biopsy, distal esophagus: - Segments of hyperplastic squamous esophageal mucosa showing focal erosion and acute inflammation, consistent with reflux esophagitis with erosion. . D. Colon biopsy, sigmoid polyp: - Hyperplastic polyp. - Small hyperplastic mucosal-associated lymphoid aggregate. . E. Colorectal biopsy, rectal polyp: - Hyperplastic polyp. . (JPM:charity; 12/17/2018) MBR/12/17/2018 . 02 Comment: Sections of the small bowel biopsy reveal segments of duodenal and small intestine mucosa. Where best oriented, the mucosal villi show no sprue-like changes or significant inflammatory changes. . Sections of the gastric biopsy reveal gastric antral and antral/body transition mucosa showing congestion and mild chronic inflammation. A properly controlled immunoperoxidase stain for Helicobacter is negative for Helicobacter organisms. . Sections of the distal esophageal biopsy reveal segments of hyperplastic squamous esophageal mucosa showing focal erosion and acute inflammation. The findings are consistent with reflux esophagitis. There is no evidence of Browning's change, dysplasia, or malignancy. . Sections of the sigmoid polyp biopsy and rectal polyp biopsy appear similar and reveal hyperplastic polyps. The sigmoid polyp also contains a small hyperplastic mucosal-associated lymphoid aggregate. There are no adenomatous changes or evidence of malignancy. . (JPM:charity; 12/17/2018) . Special stain performed: Immunoperoxidase stain for Helicobacter on B1. . 02 Electronically signed: . Clay Leach MD, Pathologist NPI- [id number] . 01 Gross description: . A. Received in formalin labeled "Larisa Villa, small bowel BX," are 5 segments of rodriguez soft tissue measuring 1.3 x 0.8 x 0.2 cm in aggregate dimensions and ranging from 0.3 to 0.5 cm in maximum dimension. The specimen is submitted entirely in cassette A1. . B. Received in formalin labeled "FlaviorLarisa, gastric antrum BX," are 2 segments of rodriguez soft tissue measuring 0.9 x 0.2 x 0.2 cm in aggregate dimensions and ranging from 0.4 to 0.5 cm in maximum dimension. The specimen is submitted entirely in cassette B1. . C. Received in formalin labeled "Larisa Villa, distal esophagus BX," are multiple segments of rodriguez soft tissue measuring 0.6 x 0.3 x 0.1 cm in aggregate dimensions. The specimen is filtered and entirely submitted in cassette C1. . D. Received in formalin labeled "FlaviorLarisa, sigmoid polyp," is a single segment of rodriguez soft tissue measuring 0.4 cm in maximum dimension. The specimen is entirely submitted in cassette D1. . E. Received in formalin labeled "FlaviorLarisa, rectal polyp," are 2 segments of rodriguez soft tissue measuring 0.5 x 0.3 x 0.2 cm in aggregate dimensions and ranging from 0.2 to 0.3 cm in maximum dimension. The specimen is submitted entirely in cassette E1. (TSD; 12/16/2018) TOB/TOB . 02 Pathologist provided ICD-10: K29.50, K21.0, K63.5, K62.1 . 02 CPT . 672305, 723130, [id number], [id number], [id number], [id number] Specimen Comment: A courtesy copy of this report has been sent to Specimen Comment: [phone], . Specimen Comment: Report sent to / DR GUTIERREZ Performed at: [address] [facility] [address], [place], [place] [id number] MD Lonnie Jones MD Phone: [phone] Performed at: 02 [facility] [place] [address] [place], [place] [id number] MD Clay Leach MD Phone: [phone]
== END | disposition home or self-care (01) ==
LOC: SURG 09:04
PROVIDERS: ATTEND Internal Medicine Gastroenterology
DX: Z12.11 Encounter for screening for malignant neoplasm of colon (principal); K63.5 Polyp of colon; K62.1 Rectal polyp; K57.30 Diverticulosis of large intestine without perforation or abscess without bleeding; K64.0 First degree hemorrhoids; K21.0 Gastro-esophageal reflux disease with esophagitis; K29.50 Unspecified chronic gastritis without bleeding; K31.89 Other diseases of stomach and duodenum; K22.8 Other specified diseases of esophagus; I10 Essential (primary) hypertension; E78.5 Hyperlipidemia, unspecified; E11.9 Type 2 diabetes mellitus without complications; Z87.11 Personal history of peptic ulcer disease; Z86.010 Personal history of colon polyps; M19.90 Unspecified osteoarthritis, unspecified site; Z72.89 Other problems related to lifestyle; Z90.49 Acquired absence of other specified parts of digestive tract; Z90.710 Acquired absence of both cervix and uterus; Z98.890 Other specified postprocedural states; Z98.84 Bariatric surgery status; Z79.84 Long term (current) use of oral hypoglycemic drugs; Z87.440 Personal history of urinary (tract) infections; F32.9 Major depressive disorder, single episode, unspecified; M81.0 Age-related osteoporosis without current pathological fracture; Z82.3 Family history of stroke; Z82.49 Family history of ischemic heart disease and other diseases of the circulatory system; Z98.51 Tubal ligation status
CPT/HCPCS: 43239; 45380; 82962; 88305; 88342; J2001; J2704

== ENCOUNTER → 2018-12-20 | Outpatient (CLI) | payer OTHER ==
[2018-12-16 10:43] VITALS: BP 132/81
[~2018-12-20] MED LIST changes: -IV RINGERS,LACTATED 1000ML 1,000 ML IV SCH; -LIDOCAINE 2% PF 5 ML VIAL. ONE; -PROPOFOL 40 ML IV ONE
--- NOTE | 2018-12-20 17:43 | KCIC ---
BILATERAL SCREENING MAMMOGRAM, 3-D History: Routine screening. Comparison: Bilateral mammogram November 11, 2017. Technique: MLO and CC digital tomosynthesis (3D) images obtained. Radiologist reviewed these images on dedicated workstation. Findings: Breast Tissue Density A : The breasts are almost entirely fatty. There are a few benign calcifications in the left breast. There are no dominant masses, suspicious microcalcifications, or architectural distortion. IMPRESSION: No mammographic evidence of malignancy. Recommend routine screening. BI-RADS category 1: Negative. The images were reviewed with computer-aided detection. Patient information is entered into reminder system with a target due date for the next screening mammogram. Mammography is the most sensitive method for finding small breast cancers, but it does not detect them all and is not a substitute for careful clinical examination. A negative mammogram does not negate a clinically suspicious finding and should not result in delay in biopsying a clinically suspicious abnormality. "Our facility is accredited by the [employer] Mammography Program." Electronically signed by: Reese Casanova MD (12/20/2018 5:40 PM) [id number]
== END | disposition home or self-care (01) ==
LOC: KCIC MAMMO 14:14
PROVIDERS: ATTEND Family Medicine
DX: Z12.31 Encounter for screening mammogram for malignant neoplasm of breast (principal)
CPT/HCPCS: 77063; 77067